=== PATIENT | female | born 2000 | race Caucasian/White ===

== ENCOUNTER 2021-09-06 17:12 | Emergency (ER) | payer OTHER, SELFPAY ==
[2021-09-06 17:18] VITALS: BP 148/90; PULSE 121; RESP 16; TEMP 36.4; O2SAT 100
--- NOTE | 2021-09-06 17:22 | ED.URI ---
HPI - URI/Sore Throat General Chief Complaint: Upper Respiratory Infection Stated Complaint: Sore throat Time Seen by Provider: 09/06/21 17:22 Source: patient, RN notes reviewed and old records reviewed Mode of arrival: ambulatory Limitations: no limitations History of Present Illness HPI Narrative: 21-year-old female who presents to [facility] with complaints of sore throat for 1 week duration which is not getting any better and continues to be 6/10 on pain scale and is aggravated by swallowing. Patient reports that she has no known fevers,chills or sweats, no nasal congestion or drainage, no ear pain, or cough. She reports that she has been taking Tylenol and Tylenol pm for her discomfort without resolution. 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 MD elicited complaint: sore throat Pertinent past history: other (strep throat when younger) Onset (ago): week(s) (1) Consistency: constant Severity: moderate Description of mucous: clear Able to tolerate fluids by mouth: Yes Exacerbating factors: swallowing Associated symptoms: sore throat Treatments prior to arrival: acetaminophen Related Data Home Medications Medication Instructions Recorded Confirmed desogestrel-ethinyl estradiol 1 tablet PO DAILY 09/06/21 09/06/21 [[place]] Allergies Allergy/AdvReac Type Severity Reaction Status Date / Time No Known Allergies Allergy Verified 09/06/21 17:19 Review of Systems Review of Systems: CONSTITUTIONAL: Denies fever, chills, or sweats. EYES: Denies visual changes, redness, or discharge. ENT: Denies rhinorrhea, congestion, positive sore throat, no otalgia. CARDIOVASCULAR: Denies chest pain, palpitations, or edema. RESPIRATORY: Denies cough or dyspnea. GASTROINTESTINAL: Denies abdominal pain, nausea, vomiting, or diarrhea. GENITOURINARY: Denies dysuria or hematuria. SKIN: Denies rash or itching. MUSCULOSKELETAL: Denies back pain, joint pain, or myalgia. NEUROLOGIC: Denies headache, numbness, or weakness. PSYCHIATRIC: Positive for anxiety no depression. All systems reviewed & are unremarkable except as noted in HPI and below PMFSH Past Medical History Medical History (Updated 09/06/21 @ 17:55 by Julieta Graff NP) Strep throat Surgical History Surgical History (Updated 09/06/21 @ 17:55 by Julieta Graff NP) No history of previous surgery Family History Family History (Updated 09/06/21 @ 17:56 by Julieta Graff NP) Mother Hypertension Osteoporosis Grandparent Cerebrovascular accident Social History Social History (Updated 09/06/21 @ 17:56 by Julieta Graff NP) Smoking status: Never smoker Alcohol intake: current Alcohol use details: Rare social Substance use: never Living arrangements: with roommate(s) Occupation/Education: student Gender identity (if verbalized by the patient): Female Comments At time of signature, agree with nursing past medical, surgical, social and family history. There is no relevant family history pertinent to the presenting complaint Exam Narrative: GENERAL: Well-appearing, well-nourished, and in no acute distress. Anxious HEAD: Normocephalic, atraumatic. EYES: PERRLA and EOMI. ENT: Nares clear, no rhinorrhea or epistaxis. Mucous membranes moist. TMs normal with good light reflex throat bright red tonsils enlarged red with white pus noted on both tonsils, painful swallowing. NECK: Supple. Lymphadenopathy CHEST: Clear to auscultation. No respiratory distress. SaO2 100% on room air no cough noted HEART: Regular rate and rhythm. No murmur heard. Normal peripheral pulses. ABDOMEN: Soft, nontender, nondistended, normal active bowel sounds. EXTREMITIES: Normal range of motion. No edema. SKIN: Warm, dry, no rash. NEURO: No focal deficits. Alert and oriented x3. T Course Course Level of Care: Express Care Visi
== END 2021-09-06 17:46 | disposition home or self-care (01) ==
PROVIDERS: Emergency Provider Registered Nurse
DX: J03.90 Acute tonsillitis, unspecified (principal)
CPT/HCPCS: 87081; 87880; 99213; G0463